=== PATIENT | male | born 1990 | race Caucasian/White ===

== ENCOUNTER 2017-05-29 23:41 | Emergency (ER) | payer BC ==
[~2017-05-29] VITALS: Ht 188 cm; Wt 92.1 kg
[~2017-05-29 23:41] MED LIST: CIPRODEX OTIC7.5 ML RIGHT EAR; COZAAR100 MG PO; LEVOTHYROXINE50 MCG PO; NORVASC10 MG PO; VITAMIN D250000 UNIT PO
[2017-05-30 00:16] LABS: HEMATOCRIT 37.9 % (38.0-50.0); MCH 30.8 PG (29.0-34.0); MCHC 36.9 G/DL (30.0-36.0); MCV 83.5 FL (86-99); PLATELET COUNT 173 K/uL (156-360); RBC DIS.WIDTH-CV 11.3 % (11.8-14.6); RBC DIS.WIDTH-SD 34.6 % (39-53); RED BLOOD COUNT 4.54 M/uL (4.00-5.50); WHITE BLOOD COUNT 6.6 K/uL (4.1-10.2)
[2017-05-30 00:28] LABS: ALBUMIN 4.4 g/dL (3.2-4.8); CHLORIDE 110 mEq/L (99-109); POTASSIUM 3.5 mEq/L (3.7-5.4); SODIUM 144 mEq/L (136-147)
[2017-05-30 00:30] LABS: GLUCOSE 134 mg/dL (70-99)
[2017-05-30 00:31] LABS: TOTAL PROTEIN 6.3 g/dL (6.4-8.3)
[2017-05-30 00:32] LABS: TOTAL BILIRUBIN 0.8 mg/dL (0.0-1.0)
[2017-05-30 00:33] LABS: SERUM ETHYL ALCOHOL 183 mg/dL
[2017-05-30 00:34] LABS: CREATININE 0.9 mg/dL (0.6-1.3); GFR ESTIMATE (CALCULATED) > 59 mL/min/ (58.99-99999)
[2017-05-30 00:35] LABS: ALKALINE PHOSPHATASE 76 IU/L (3-129)
[2017-05-30 00:36] LABS: AST (GOT) 17 IU/L (2-34); UREA NITROGEN (BUN) 11 mg/dL (9-23)
[2017-05-30 00:37] LABS: SALICYLATE < 5.0 MG/DL (15-30)
[2017-05-30 00:38] LABS: ACETAMINOPHEN (TYLENOL) < 10 mcg/mL (10-30); ALT (GPT) 23 IU/L (3-49)
[2017-05-30 00:45] LABS: APPEARANCE CLEAR ((CLEAR)); BILIRUBIN NEGATIVE; BLOOD MODERATE; COLOR STRAW ((YELLOW)); GLUCOSE (STRIP) 150; KETONES NEGATIVE; LEUKOCYTES NEGATIVE; NITRITE NEGATIVE; PROTEIN (STRIP) NEGATIVE; UROBILINOGEN 0.2 MG/DL (0.2-1.0)
[2017-05-30 00:50] LABS: BACTERIA NONE SEEN /HPF; EPITHELIAL CELLS RARE /HPF; MUCUS TRACE /LPF; RED BLOOD CELLS 0-5 /HPF (0-5); WHITE BLOOD CELLS 0-5 /HPF (0-5)
[2017-05-30 00:51] LABS: AMPHETAMINE NEGATIVE (500 ng/mL); BARBITURATES NEGATIVE (200 ng/mL); BENZODIAZEPINES NEGATIVE (150 ng/mL); BUPRENORPHINE NEGATIVE (10 ng/mL); COCAINE NEGATIVE (150 ng/mL); METHADONE NEGATIVE (200 ng/mL); METHAMPHETAMINE NEGATIVE (500 ng/mL); OPIATES (MORPHINE) PRESUMPTIVE POSITIVE (100 ng/mL); OXYCODONE NEGATIVE (100 ng/mL); PHENCYCLIDINE NEGATIVE (25 ng/mL); PROPOXYPHENE NEGATIVE (300 ng/mL); THC CANNABINOIDS NEGATIVE (50 ng/mL); TRICYCLIC ANTIDEPRESSANTS NEGATIVE (300 ng/mL)
[2017-05-30 05:25] VITALS: BP 119/65
== END 2017-05-30 05:25 | disposition home or self-care (01) ==
LOC: EME → EDBD 23:41 → EME 23:41
PROVIDERS: Emergency Medicine
DX: F10.10 Alcohol abuse, uncomplicated (principal); Y90.6 Blood alcohol level of 120-199 mg/100 ml; F11.10 Opioid abuse, uncomplicated; I10 Essential (primary) hypertension; Z90.49 Acquired absence of other specified parts of digestive tract
CPT/HCPCS: 70450; 71045; 80053; 81003; 84999; 85027; 93005; 99281; 99285; G0480; J1630; J2310; J2405; J7030

== ENCOUNTER 2017-06-07 15:03 | Emergency (ER) | payer BC ==
[~2017-06-07] VITALS: Ht 185.4 cm; Wt 81.6 kg
[2017-06-07 15:41] LABS: HEMATOCRIT 42.3 % (38.0-50.0); HEMOGLOBIN 15.4 G/DL (12.5-16.6); MCH 31.3 PG (29.0-34.0); MCHC 36.4 G/DL (30.0-36.0); PLATELET COUNT 196 K/uL (156-360); RBC DIS.WIDTH-CV 11.6 % (11.8-14.6); RED BLOOD COUNT 4.92 M/uL (4.00-5.50); WHITE BLOOD COUNT 7.5 K/uL (4.1-10.2)
[2017-06-07 15:47] LABS: CHLORIDE 106 mEq/L (99-109); POTASSIUM 4.3 mEq/L (3.7-5.4); SODIUM 143 mEq/L (136-147)
[2017-06-07 15:49] LABS: GLUCOSE 115 mg/dL (70-99)
[2017-06-07 15:53] LABS: GFR ESTIMATE (CALCULATED) > 59 mL/min/ (58.99-99999)
[2017-06-07 15:54] LABS: UREA NITROGEN (BUN) 11 mg/dL (9-23)
[2017-06-07 16:00] LABS: TROP-I INTERPRETATION NEGATIVE; TROPONIN-I 0.02 ng/mL (0.0-0.30)
[2017-06-07 18:56] LABS: TROP-I INTERPRETATION NEGATIVE; TROPONIN-I < 0.01 ng/mL (0.0-0.30)
[2017-06-07 19:35] VITALS: BP 151/94
== END 2017-06-07 19:36 | disposition home or self-care (01) ==
LOC: EME 15:03
PROVIDERS: Physician Assistant Medical
DX: R07.89 Other chest pain (principal); I10 Essential (primary) hypertension; K50.90 Crohn's disease, unspecified, without complications; Z90.49 Acquired absence of other specified parts of digestive tract
CPT/HCPCS: 71046; 80048; 84484; 85027; 93005; 99281; 99284